=== PATIENT | female | born 1975 | race Hispanic/Latino ===

== ENCOUNTER 2024-11-22 13:15 | Emergency (ER) | payer OTHER ==
[~2024-11-22] VITALS: Ht 157.5 cm; Wt 66.8 kg
[2024-11-22 13:27] VITALS: PULSE 73; RESP 18; TEMP 98.5; O2SAT 99
[2024-11-22] MEDS ORDERED: VALTREX1000 MG PO (13:42)
== END 2024-11-22 13:48 | disposition home or self-care (01) ==
LOC: FSED 13:42
DX: B02.29 Other postherpetic nervous system involvement (principal)
CPT/HCPCS: 99284